=== PATIENT | female | born 1975 | race Two or more races ===

== ENCOUNTER 2017-06-30 17:07 | Emergency (ER) | payer MEDICAID ==
[~2017-06-30] VITALS: Ht 12.7 cm; Wt 9.8 kg
[2017-06-30 18:00] VITALS: BP 152/92
[2017-06-30] MEDS ORDERED: CYCLOBENZAPRINE HCL 10 MG TAB PO ONE (19:15)
[2017-06-30] MEDS ORDERED: KETOROLAC TROMETH 60MG/2ML VIAL IM ONE (19:15)
== END 2017-06-30 21:20 | disposition home or self-care (01) ==
LOC: ER 17:13
DX: M54.32 Sciatica, left side (principal); Z76.0 Encounter for issue of repeat prescription
CPT/HCPCS: 82962; 96372; 99283; J1885

== ENCOUNTER 2019-06-03 12:20 | Emergency (ER) | payer MEDICAID ==
[~2019-06-03] VITALS: Ht 162.6 cm; Wt 101.2 kg
[2019-06-03 16:21] VITALS: BP 125/78
== END 2019-06-03 16:18 | disposition home or self-care (01) ==
LOC: ER 12:20
DX: N39.0 Urinary tract infection, site not specified (principal); E11.9 Type 2 diabetes mellitus without complications; Z76.0 Encounter for issue of repeat prescription
CPT/HCPCS: 81002